=== PATIENT | male | born 1975 | race Two or more races ===

== ENCOUNTER 2024-10-27 15:06 | Emergency (ER) | payer OTHER ==
[~2024-10-27] VITALS: Ht 177.8 cm; Wt 99.8 kg
[2024-10-27] MEDS ORDERED: KETOROLAC TROMETHAMINE 15 MG/ML VIAL ONE (15:48)
[2024-10-27] MEDS: KETOROLAC TROMETHAMINE 15 MG/ML VIAL IM ONE (16:12)
[2024-10-27] MEDS ORDERED: IBUP-1490 PO (17:00)
[2024-10-27] MEDS ORDERED: LIDO30AD10 TP (17:00)
[2024-10-27 18:03] VITALS: BP 139/100; TEMP 97.8; O2SAT 97
== END 2024-10-27 18:04 | disposition home or self-care (01) ==
LOC: ER 15:17
DX: M25.511 Pain in right shoulder (principal); M25.551 Pain in right hip; M25.552 Pain in left hip; R10.2 Pelvic and perineal pain; R20.2 Paresthesia of skin; M51.360 Other intervertebral disc degeneration, lumbar region with discogenic back pain only; V43.62XA Car passenger injured in collision with other type car in traffic accident, initial encounter; Y93.89 Activity, other specified; Y92.488 Other paved roadways as the place of occurrence of the external cause; Y99.8 Other external cause status
CPT/HCPCS: 99285; 72131; 96372; 73030; 72192; J1885